=== PATIENT | female | born 1980 | race African-American/Black ===

== ENCOUNTER 2020-06-23 21:57 | Emergency (ER) | payer MEDICAID, MEDICARE, OTHER ==
[2020-06-23 22:28] LABS: #Basophils 0.1 thou/uL (0.0-0.2); #Eosinphils 0.1 thou/uL (0.0-0.7); #Lymphocytes 1.4 thou/uL (1.20-3.40); #Monocytes 0.2 thou/uL (0.11-0.59); #Neutrophils 2.4 thou/uL (1.40-6.50); %Basophils 1.9 % (0.0-1.0); %Eosinophils 2.6 % (0.0-10.0); %Lymphocytes 32.4 % (21.0-51.0); %Monocytes 5.7 % (0.0-10.0); %Neutrophils 57.4 % (42.0-75.0); Hemoglobin 11.3 g/dL (12.0-16.0); Mean Corpuscular HGB CONC 34.8 g/dL (32.0-36.0); Mean Corpuscular Hemoglobin 32.3 pg (27.0-31.0); Mean Corpuscular Volume 92.9 fL (78.0-98.0); Mean Platelet Volume 7.2 fL (7.4-10.4); Platelet Count 209 thou/uL (130-400); RBC Distribution Width 11.9 % (11.5-14.5); Red Blood Cell (RBC) Count 3.48 mill/uL (4.20-5.40); White Blood Cell (WBC) Count 4.2 thou/uL (4.8-10.8)
[2020-06-23 22:40] LABS: ALT (SGPT) 21 U/L (8-55); AST (SGOT) 23 U/L (5-34); Albumin 3.4 g/dL (3.5-5.0); Alkaline Phosphatase 47 U/L (40-110); Anion Gap 14 mmol/L (10-20); BUN (Urea Nitrogen) 5 mg/dL (7.0-18.7); Bilirubin, Total 0.3 mg/dL (0.2-1.2); Calc. Creatinine Clearance 0 mL/min (70-130); Calcium 8.8 mg/dL (7.8-10.44); Carbon Dioxide 21 mmol/L (22-29); Chloride 107 mmol/L (98-107); Globulin 2.6 g/dL (2.4-3.5); Glucose 78 mg/dL (70-105); Potassium 3.3 mmol/L (3.5-5.1); Sodium 139 mmol/L (136-145)
[2020-06-23 22:46] LABS: Alcohol Less than 10 mg/dL (Less than 10); Salicylate Less than 8.0 mg/dL (15.0-30.0)
[2020-06-23] MEDS ORDERED: Naloxone HCl 0.4 mg/ml Vial ONE ×2 (23:06→23:08)
== END 2020-06-23 23:21 ==
LOC: BURERS 21:57
DX: R07.89 Other chest pain (principal); F11.10 Opioid abuse, uncomplicated
CPT/HCPCS: 71045; 80053; 80307; 84484; 85025; 93005; 94760; 96374; J2310

== ENCOUNTER 2022-06-14 15:54 | Observation (INO) | payer MEDICARE, OTHER ==
[2022-06-14] MEDS ORDERED: methylPREDNISolone Sod Succ/PF 125 MG/2 ML VIAL ONE (16:14)
[2022-06-14] MEDS ORDERED: Magnesium 2 GM/50 ML BAG (IN WATER) ONE (16:14)
[2022-06-14] MEDS ORDERED: Albuterol 2.5 MG/0.5 ML NEB ONE (16:14)
[2022-06-14 17:31] LABS: #Basophils 0.1 thou/uL (0.0-0.2); #Eosinphils 0.5 thou/uL (0.0-0.7); #Lymphocytes 1.9 thou/uL (1.20-3.40); #Monocytes 0.3 thou/uL (0.11-0.59); #Neutrophils 3.2 thou/uL (1.40-6.50); %Basophils 1.1 % (0.0-1.0); %Eosinophils 8.8 % (0.0-10.0); %Lymphocytes 31.2 % (21.0-51.0); %Monocytes 5.4 % (0.0-10.0); %Neutrophils 53.5 % (42.0-75.0); Hemoglobin 15.1 g/dL (12.0-16.0); Mean Corpuscular HGB CONC 33.6 g/dL (32.0-36.0); Mean Corpuscular Hemoglobin 31.5 pg (27.0-31.0); Mean Corpuscular Volume 93.6 fl (78.0-98.0); Mean Platelet Volume 6.9 fL (7.4-10.4); Platelet Count 301 10x3/uL (130-400); RBC Distribution Width 11.9 % (11.5-14.5); Red Blood Cell (RBC) Count 4.79 mill/uL (4.20-5.40)
[2022-06-14 17:45] LABS: ALT (SGPT) 20 U/L (8-55); AST (SGOT) 18 U/L (5-34); Albumin 4.3 g/dL (3.5-5.0); Alkaline Phosphatase 73 U/L (40-110); Anion Gap 15 mmol/L (10-20); BUN (Urea Nitrogen) 10 mg/dL (7.0-18.7); Bilirubin, Total 0.5 mg/dL (0.2-1.2); Calc. Creatinine Clearance 0 mL/min (70-130); Calcium 9.4 mg/dL (7.8-10.44); Carbon Dioxide 23 mmol/L (22-29); Chloride 106 mmol/L (98-107); Estimated GFR 87; Globulin 2.8 g/dL (2.4-3.5); Glucose 98 mg/dL (70-105); Potassium 3.7 mmol/L (3.5-5.1); Protein, Total 7.1 g/dL (6.0-8.3); Sodium 140 mmol/L (136-145)
[2022-06-14 19:13] LABS: SARS-CoV-2 NAA Rapid Test Not Detected (NotDetected)
[2022-06-14 19:26] VITALS: BMI 27.4
[2022-06-14] MEDS ORDERED: Benzonatate 100 MG CAP PO PRN (19:56)
[2022-06-14] MEDS ORDERED: Ondansetron ODT 4 MG TAB SL PRN (20:00)
[2022-06-14] MEDS ORDERED: Ondansetron PF 4 MG/2 ML Vial IVP PRN (20:00)
[2022-06-14] MEDS: Acetaminophen 325 MG TAB PO PRN (20:59)
[2022-06-14] MEDS: methylPREDNISolone Sod Succ 40 MG VIAL IVP SCH (23:59)
[2022-06-14] MEDS: Ipratropium/Albuterol 3 ML NEB NEB SCH (23:59)
[2022-06-15] MEDS: Ipratropium/Albuterol 3 ML NEB NEB SCH ×4 (05:07→23:02)
[2022-06-15] MEDS: methylPREDNISolone Sod Succ 40 MG VIAL IVP SCH ×3 (07:34→23:03)
[2022-06-15] MEDS: Famotidine 20 MG TAB PO SCH ×2 (07:48→20:31)
[2022-06-15] MEDS: Acetaminophen 325 MG TAB PO PRN ×3 (07:48→23:01)
[2022-06-15] MEDS ORDERED: Melatonin 3 MG TAB PO PRN (22:37)
[2022-06-16] MEDS: Ipratropium/Albuterol 3 ML NEB NEB SCH (05:20)
[2022-06-16] MEDS ORDERED: predniSONE 20 MG TAB PO SCH (07:45)
[2022-06-16] MEDS: Famotidine 20 MG TAB PO SCH (08:20)
[2022-06-16] MEDS: Acetaminophen 325 MG TAB PO PRN (08:20)
[2022-06-16 11:52] VITALS: BP 130/93; TEMP 97.5
== END 2022-06-16 11:43 | disposition home or self-care (01) ==
LOC: BURERS 15:54 → BURMED 18:55
PROVIDERS: ADMIT Family Medicine; ATTEND Family Medicine
DX: J45.901 Unspecified asthma with (acute) exacerbation (principal); J20.8 Acute bronchitis due to other specified organisms; I10 Essential (primary) hypertension; F11.21 Opioid dependence, in remission; Z87.891 Personal history of nicotine dependence; Z20.822 Contact with and (suspected) exposure to COVID-19
CPT/HCPCS: 71045; 80053; 85025; 87804; 94640; 96365; 96375; 96376; G0378; J2920; J2930; J3475; J7512; J7611; J7620; U0002

== ENCOUNTER 2022-09-05 18:49 | Emergency (ER) | payer MEDICARE, OTHER ==
[2022-09-05] MEDS ORDERED: predniSONE 20 MG TAB ONE (19:11)
[2022-09-05] MEDS ORDERED: Ipratropium/Albuterol 3 ML NEB ONE (19:11)
[2022-09-05] MEDS ORDERED: Albuterol 2.5 MG/0.5 ML NEB ONE (19:11)
== END 2022-09-05 20:32 | disposition home or self-care (01) ==
LOC: BURERS 18:49
DX: J45.901 Unspecified asthma with (acute) exacerbation (principal); F41.1 Generalized anxiety disorder; I10 Essential (primary) hypertension; F17.200 Nicotine dependence, unspecified, uncomplicated
CPT/HCPCS: 71045; 94640; J7512; J7611; J7620